=== PATIENT | female | born 1945 | race Two or more races ===

== ENCOUNTER 2016-04-24 22:44 | Emergency (ER) | payer MEDICARE, OTHER ==
[~2016-04-24] VITALS: Ht 165.1 cm; Wt 79.4 kg
[2016-04-24] MEDS ORDERED: ACETAMINOPHEN 500 MG TAB PO ONE (23:00)
[2016-04-24 23:36] LABS: DEFINITIVE VIEW TRANSMISSION; Hematocrit 38.8 % (36.0-46.0); Mean Corpuscular Hemoglobin 29.9 pg (28.0-32.0); Mean Corpuscular Hgb Conc. 33.6 g/dL (32.0-36.0); Mean Corpuscular Volume 88.9 fL (80.0-100.0); Platelet Count (auto) 348 10^3/uL (140-450); Red Cell Distribution Width 14.1 % (11.6-16.0); SUSPECT VIEW TRANSMISSION; White Blood Cell 12.6 10^3/uL (4.4-10.8)
[2016-04-24 23:45] LABS: Albumin 2.7 g/dL (3.4-5.0); BUN/Creatinine Ratio 15.9; Calcium 7.9 mg/dL (8.5-10.1); Potassium 3.3 mmol/L (3.5-5.1)
[2016-04-24] MEDS ORDERED: ACETAMINOPHEN 650 MG RECT SUPP PR ONE (23:45)
[2016-04-24 23:49] LABS: Bilirubin, Total 2.5 mg/dL (0.2-1.0); Metamyelocytes % 0; Promyelocytes % 0; Reactive Lymphocytes 0
[2016-04-25 00:32] LABS: Giant Platelets Few; Myelocytes % 1; Platelet Estimate Adequate; RBC Morphology Normal
[2016-04-25] MEDS ORDERED: SODIUM CHLORIDE 0.9% 1,000 ML IV ONE ×2 (01:00→05:00)
[2016-04-25 01:08] LABS: Urine Bilirubin Negative (Negative); Urine Blood 1+ /uL (Negative); Urine Color Yellow (Yellow); Urine Glucose Normal (Normal); Urine Ketone 1+ (Negative); Urine Nitrite Negative (Negative); Urine RBC 13 /hpf (0 - 4); Urine Squamous Epithelial Cell FEW /hpf (<5); Urine pH 7.5 (5.0-8.0)
[2016-04-25 01:30] LABS: Partial Thromboplastin Time 40.5 sec (22.64-33.71)
[2016-04-25 01:31] LABS: INR 3.65 (0.9-1.15); Prothrombin Time 37.6 sec (9.37-12.3)
[2016-04-25] MEDS ORDERED: PHYTONADIONE (VIT K)10 MG/ML 1ML VIAL SUBCUT ONE (01:45)
[2016-04-25] MEDS ORDERED: SUCCINYLCHOLINE CHLORIDE 20 MG/ML 10ML VIAL IV ONE ×2 (01:48→05:00)
[2016-04-25] MEDS ORDERED: ETOMIDATE (2MG/ML) 20ML VIAL IV ONE ×2 (01:48→05:00)
[2016-04-25] MEDS ORDERED: MIDAZOLAM DRIP 100 mg/100mL NS 100 ML IV ONE (02:05)
[2016-04-25] MEDS ORDERED: DEXAMETHASONE SOD PHOS 10MG/1ML VIAL INJ IV ONE (02:15)
[2016-04-25] MEDS ORDERED: MANNITOL 20% SOLN 100 gm/500ml 250 ML IV ONE ×2 (02:15→02:30)
[2016-04-25] MEDS ORDERED: MIDAZOLAM DRIP 100 mg/100mL NS 100 ML IV SCH (02:30)
[2016-04-25] MEDS ORDERED: MANNITOL 20 % (20GM/100ML) 500 ML IV ONE (03:02)
[2016-04-25] MEDS ORDERED: LEVETIRACETAM INJ 1,000 MG in SODIUM CHL 0.9% 100 ML IV ONE ×2 (03:45→04:15)
[2016-04-25] MEDS ORDERED: LEVETIRACETAM 500 MG/5ML INJ IV ONE (04:07)
[2016-04-25] MEDS ORDERED: NICARDIPINE 25MG/250ML BAG KIT 250 ML IV ONE (05:58)
[2016-04-25] MEDS ORDERED: NICARDIPINE 25MG/250ML BAG KIT 250 ML IV SCH (06:00)
[2016-04-25] MEDS ORDERED: NOREPINEPHRINE BITARTRATE 250 ML IV ONE (06:06)
[2016-04-25 06:12] VITALS: BP 88/60
[2016-04-25] MEDS ORDERED: NOREPINEPHRINE BITARTRATE 250 ML IV SCH (06:30)
== END 2016-04-25 06:48 | disposition short-term general hospital (02) ==
LOC: EDBD 22:44 → ER 22:48
DX: I62.00 Nontraumatic subdural hemorrhage, unspecified (principal); D68.9 Coagulation defect, unspecified; Z96.652 Presence of left artificial knee joint; R41.82 Altered mental status, unspecified
CPT/HCPCS: 31500; 36415; 36600; 70450; 71010; 72125; 80053; 81001; 82805; 83605; 84484; 85007; 85027; 85379; 85610; 85730; 87040; 87070; 87077; 87186; 87205; 93005; 94002; 96361; 96365; 96367; 96372; 96375; 99291; G0434; J0330; J1100; J1953; J3430; J3490; J7030